=== PATIENT | male | born 1995 | race Caucasian/White ===

== ENCOUNTER 2024-02-23 10:09 | Inpatient (IN) | payer MEDICAID, MEDICARE, OTHER ==
[~2024-02-23] VITALS: Ht 180.3 cm; Wt 90.7 kg
[~2024-02-23 10:09] MED LIST: ATOR10TA PO; CARB100T12 PO; DIVA250T4 PO; GUAN1TAB22 PO; LURA40TA2 PO
[2024-02-23 11:16] LABS: BASOPHILS % (AUTO) 0.5 % (0.0-2.0); EOSINOPHILS % (AUTO) 1.5 % (1.0-6.0); HEMATOCRIT 43.2 % (41-53); HEMOGLOBIN 14.7 g/dL (13.5-17.5); LYMPHOCYTES # (AUTO) 2.2 K/uL (1.0-4.8); LYMPHOCYTES % (AUTO) 29.4 % (22.0-44.0); MEAN CORPUSCULAR HEMOGLOBIN 29.8 pg (26.0-34.0); MEAN CORPUSCULAR VOLUME 88 fL (80-100); MONOCYTES # (AUTO) 0.3 K/uL (0.1-1.0); MONOCYTES % (AUTO) 4.2 % (2.0-9.0); NEUTROPHILS # (AUTO) 4.7 K/uL (1.8-7.7); NEUTROPHILS % (AUTO) 64.4 % (40.0-70.0); PLATELET COUNT (AUTO) 273 K/uL (150-450); RED BLOOD CELL COUNT(AUTO) 4.94 MIL/uL (4.50-5.90); RED CELL DISTRIBUTION WIDTH 13.5 % (11.5-14.5); WHITE BLOOD COUNT (AUTO) 7.4 K/uL (4.5-11.0)
[2024-02-23 11:35] LABS: ALCOHOL, BLOOD (SERUM) < 3 mg/dL (0-10); ANION GAP 11 mmol/L (8-16); CALCIUM, TOTAL 9.1 mg/dL (8.8-10.5); CARBON DIOXIDE 26 mmol/L (22-29); CHLORIDE 103 mmol/L (98-107); CREATININE 0.89 mg/dL (0.60-1.30); GLOMERULAR FILTR. RATE CALC > 60 mL/min (>60); GLUCOSE,RANDOM 90 mg/dL (70-110); POTASSIUM 3.6 mmol/L (3.5-5.1); SODIUM SERUM 140 mmol/L (136-145); UREA NITROGEN, BLOOD 10 mg/dL (7-18)
[2024-02-23 11:40] LABS: ALANINE AMINOTRANSFERASE 47 U/L (12-78); ALBUMIN 4.6 g/dL (3.4-5.0); ALKALINE PHOSPHATASE 64 U/L (46-116); ASPARTATE AMINOTRANSFERASE 21 U/L (15-37); BILIRUBIN,TOTAL 0.7 mg/dL (0.1-1.0); TOTAL PROTEIN, SERUM 8.5 g/dL (6.4-8.2)
[2024-02-23 14:07] LABS: COVID AG,FIA SOURCE NASAL SWAB
[2024-02-23 14:20] LABS: ALCOHOL, URINE DRUG SCREEN NEGATIVE (NEGATIVE); AMPHET/METH SCREEN,URINE NEGATIVE (NEGATIVE); BARBITURATE SCREEN, URINE NEGATIVE (NEGATIVE); BENZODIAZEPINES SCREEN,URINE NEGATIVE (NEGATIVE); CANNABINOID SCREEN,URINE NEGATIVE (NEGATIVE); COCAINE SCREEN,URINE NEGATIVE (NEGATIVE); METHADONE SCREEN, URINE NEGATIVE (NEGATIVE); OPIATE SCREEN,URINE NEGATIVE (NEGATIVE); PHENCYCLIDINE SCREEN,URINE NEGATIVE (NEGATIVE)
[2024-02-23 14:31] LABS: SARS-COV2 (COVID) ANTIGEN,FIA Negative (Negative)
[2024-02-23 17:15] VITALS: BP 137/90; PULSE 67; RESP 16; TEMP 97.7
[2024-02-23] MEDS: LORazepam 2 MG TABLET PO PRN (17:41)
[2024-02-23] MEDS ORDERED: PETROLATUM,WHITE 28 GM JELLY TP PRN (19:45)
[2024-02-23] MEDS ORDERED: MAGNESIUM HYDROXIDE SUSPENSION 30 ML UDCUP PO PRN (19:45)
[2024-02-23] MEDS ORDERED: ALBUTEROL SULFATE HFA 90 MCG/PUFF 8 GM INHALER IH PRN (19:45)
[2024-02-23] MEDS ORDERED: LOPERAMIDE HCL 2 MG CAPSULE PO PRN (19:45)
[2024-02-23] MEDS ORDERED: ONDANSETRON HCL 4 MG TABLET PO PRN (19:45)
[2024-02-23] MEDS ORDERED: BACITRACIN 28 GM OINTMENT TP PRN (19:45)
[2024-02-23] MEDS ORDERED: DOCUSATE SODIUM 100 MG CAPSULE PO PRN (19:45)
[2024-02-23] MEDS ORDERED: MAG HYDROX/ALUMINUM HYD/SIMETH ES 30 ML SUSPENSION UDCUP PO PRN (19:45)
[2024-02-23] MEDS ORDERED: IBUPROFEN 600 MG TABLET PO PRN (19:45)
[2024-02-23] MEDS ORDERED: ACETAMINOPHEN 325 MG TABLET PO PRN (19:45)
[2024-02-23] MEDS ORDERED: CloNIDine HCL 0.1 MG TABLET PO PRN (19:45)
[2024-02-23] MEDS ORDERED: OMEPRAZOLE 20 MG CAPSULE PO PRN (19:45)
[2024-02-23] MEDS: ZOLPIDEM TARTRATE 10 MG TABLET PO PRN (20:04)
[2024-02-23 20:14] VITALS: BP 136/97; PULSE 60; TEMP 97.3
[2024-02-24 08:16] VITALS: BP 144/78; PULSE 97; RESP 18; TEMP 97.6
[2024-02-24] MEDS: HALOPERIDOL 5 MG TABLET PO PRN (14:42)
[2024-02-24] MEDS: GuanFACINE HCL 1 MG TABLET PO SCH (17:22)
[2024-02-24] MEDS: LURASIDONE HCL 60 MG TABLET PO SCH (17:24)
[2024-02-24] MEDS: DIVALPROEX SODIUM 250 MG DR TABLET PO SCH (17:24)
[2024-02-24] MEDS: CarBAMazepine 100 MG CHEWABLE TABLET PO SCH (17:24)
[2024-02-24 20:32] VITALS: BP 144/90; PULSE 92; RESP 17; TEMP 97.6
[2024-02-24] MEDS: ATORVASTATIN CALCIUM 10 MG TABLET PO SCH (20:46)
[2024-02-25 04:06] LABS: HEPATITIS C AB (EIA) Non Reactive (Non Reactive)
[2024-02-25 08:47] LABS: CHOL/HDL RATIO 8.3 (4.2-7.3); THYROID STIMULATING HORMONE 2.15 uIU/mL (0.36-3.74)
[2024-02-25 08:57] VITALS: BP 119/67; PULSE 89; RESP 19; TEMP 97.5
[2024-02-25] MEDS ORDERED: DiphenhydrAMINE HCL 50 MG/ML VIAL ONE (10:56)
[2024-02-25] MEDS ORDERED: HALOPERIDOL LACTATE 5 MG/ML VIAL ONE (10:56)
[2024-02-25] MEDS ORDERED: LORazepam 2 MG/ML VIAL ONE (10:56)
[2024-02-25] MEDS: LORazepam 2 MG/ML VIAL IM ONE (11:26)
[2024-02-25] MEDS: HALOPERIDOL LACTATE 5 MG/ML VIAL IM ONE (11:26)
[2024-02-25] MEDS: DiphenhydrAMINE HCL 50 MG/ML VIAL IM ONE (11:26)
[2024-02-26 02:06] VITALS: BP 126/68; PULSE 84; RESP 18; TEMP 98
[2024-02-26 09:34] VITALS: BP 114/71; PULSE 84; RESP 19; TEMP 97.2
[2024-02-26 22:00] VITALS: BP 113/67; PULSE 65; RESP 16; TEMP 97.6
[2024-02-27] MEDS: BENZOCAINE/MENTHOL LOZENGE PO PRN (05:52)
[2024-02-27 09:33] VITALS: BP 131/77; PULSE 78; RESP 18; TEMP 98.2
[2024-02-27] MEDS ORDERED: LURA60TA PO (17:31)
[2024-02-27] MEDS ORDERED: DIVA-112 PO (17:31)
[2024-02-27] MEDS: LITHIUM CARBONATE 300 MG CAPSULE PO SCH (17:35)
[2024-02-27 20:03] VITALS: BP 98/51; PULSE 81; TEMP 97.8
[2024-02-28] MEDS: DIVALPROEX SODIUM 500 MG DR TABLET PO SCH (08:48)
[2024-02-28 08:59] VITALS: BP 132/75; PULSE 87; RESP 14; TEMP 97.6; O2SAT 99
[2024-02-28 16:00] VITALS: BP 134/81; PULSE 82; RESP 18; TEMP 97.8
[2024-02-28 20:24] VITALS: BP 137/79; PULSE 87; RESP 18; TEMP 97.7
[2024-02-29 08:18] VITALS: BP 108/83; PULSE 89; RESP 17; TEMP 98; O2SAT 97
[2024-02-29] MEDS ORDERED: GUAN1TAB2 PO (10:37)
[2024-02-29] MEDS ORDERED: LITH300C3 PO (10:37)
[2024-02-29] MEDS ORDERED: CARB100T12 PO (10:37)
[2024-02-29] MEDS ORDERED: LURA60TA4 PO (10:37)
[2024-02-29] MEDS ORDERED: DIVA-112 PO (10:37)
== END 2024-02-29 15:21 | disposition home or self-care (01) | DRG 750 ==
LOC: EMS 10:30 → B3A 14:41 → EMS 15:45 → B2S 02-24 08:43 → B3A 02-25 12:00
PROVIDERS: ADMIT Psychiatry & Neurology Psychiatry; ATTEND Psychiatry & Neurology Psychiatry
PROC: GZHZZZZ Group Psychotherapy (ICD-10-PCS; principal; 2024-02-24)
PROC: GZ51ZZZ Individual Psychotherapy, Behavioral (ICD-10-PCS; 2024-02-29)
DX: F25.0 Schizoaffective disorder, bipolar type (principal); F79 Unspecified intellectual disabilities; R45.851 Suicidal ideations; F17.200 Nicotine dependence, unspecified, uncomplicated; Z20.822 Contact with and (suspected) exposure to COVID-19; E78.5 Hyperlipidemia, unspecified; I10 Essential (primary) hypertension; K59.00 Constipation, unspecified; Z79.899 Other long term (current) drug therapy
CPT/HCPCS: 80053; 80061; 80307; 84443; 85025; 86803; 87340; 99285; G0480; J1200; J1630; J2060; Q9967